=== PATIENT | male | born 1975 | race Two or more races ===

== ENCOUNTER 2019-09-03 15:00 | Emergency (ER) | payer OTHER ==
[~2019-09-03] VITALS: Ht 167.6 cm; Wt 97.1 kg
[2019-09-03 15:24] VITALS: BP 150/73
== END 2019-09-03 21:52 | disposition left against medical advice (07) ==
LOC: ER 15:00
DX: M79.606 Pain in leg, unspecified (principal); Z53.21 Procedure and treatment not carried out due to patient leaving prior to being seen by health care provider